=== PATIENT | male | born 1975 | race Caucasian/White ===

== ENCOUNTER 2022-08-16 01:49 | Emergency (ER) | payer OTHER ==
[~2022-08-16] VITALS: Ht 182.9 cm; Wt 97.1 kg
--- NOTE | 2022-08-16 02:15 | NUR ---
CAME W/ CC OF FEVER X5DAYS, TAKING ACETAMENOPHEN 2 TABS Q6H NO RELIEF, ON DAY 3 WITH ZPACK. +DIZZINESS AND NAUSEA, W/ RT FLANK SHARP PAIN
--- NOTE | 2022-08-16 02:21 | NUR ---
URINE COLLECTED SENT TO LAB
--- NOTE | 2022-08-16 02:32 | NUR ---
DR. BLAKE AT BEDSIDE
--- NOTE | 2022-08-16 02:45 | NUR ---
EKG DONE AT BEDSIDE
--- NOTE | 2022-08-16 02:50 | NUR ---
20G STARTED ON L AC. BLOOD COLLECTED AND SENT TO LAB
[2022-08-16] MEDS ORDERED: IBUPROFEN 400 MG TABLET ONE (02:56)
--- NOTE | 2022-08-16 02:58 | NUR ---
COVID ANTIGEN COLLECTED SENT TO LAB
[2022-08-16] MEDS ORDERED: IBUPROFEN 400 MG TABLET PO ONE (03:00)
[2022-08-16] MEDS ORDERED: IV NS 0.9% 1,000 ML BAG IV ONE (03:00)
[2022-08-16 03:12] LABS: EOSINOPHILS % (AUTO) 0.7 % (0.0-6.0); HEMATOCRIT 47 % (39-51); HEMOGLOBIN 15.2 g/dL (13.5-17.5); LYMPHOCYTES # (AUTO) 0.6 K/uL (0.8-4.8); LYMPHOCYTES % (AUTO) 15.6 % (20.0-44.0); MEAN CORPUSCULAR HGB CONC 33 g/dl (31.0-36.0); MEAN CORPUSCULAR VOLUME 89 fL (80-96); MONOCYTES # (AUTO) 0.5 K/uL (0.1-1.30); MONOCYTES % (AUTO) 12.8 % (2.0-12.0); NEUTROPHILS # (AUTO) 2.8 K/uL (1.8-8.9); NEUTROPHILS % (AUTO) 69.9 % (43.0-81.0); PLATELET COUNT (AUTO) 163 K/uL (150-450); RED BLOOD CELL COUNT(AUTO) 5.25 MIL/uL (4.5-6.0)
[2022-08-16 03:18] LABS: CALCIUM, SERUM 9.6 mg/dL (8.5-10.1); CARBON DIOXIDE 25 mmol/L (21-32); CHLORIDE 104 mmol/L (98-107); CREATININE 1.2 mg/dL (0.6-1.3); GLUCOSE 106 mg/dL (74-106); POTASSIUM 3.8 mmol/L (3.5-5.1); SODIUM SERUM 137 mmol/L (136-145); UREA NITROGEN, BLOOD 18 mg/dL (7-18)
[2022-08-16 03:23] LABS: ALANINE AMINOTRANSFERASE 61 U/L (12-78); ALBUMIN 3.8 g/dL (3.4-5.0); ALKALINE PHOSPHATASE 72 U/L (46-116); ASPARTATE AMINOTRANSFERASE 25 U/L (15-37); BILIRUBIN,DIRECT 0.1 mg/dL (0.0-0.2); BILIRUBIN,TOTAL 0.5 mg/dL (0.2-1.0); TOTAL PROTEIN, SERUM 7.3 g/dL (6.4-8.2)
[2022-08-16 04:00] LABS: BILIRUBIN,URINE NEGATIVE (NEGATIVE); COLOR,URINE YELLOW (YELLOW); LEUKOCYTE ESTERASE ,URINE NEGATIVE (NEGATIVE); NITRITE, URINE NEGATIVE (NEGATIVE); PROTEIN,URINE NEGATIVE (NEGATIVE); UGLUCOSE NEGATIVE (NEGATIVE); UROBILINOGEN,URINE 0.2 EU/dL (0.2)
--- NOTE | 2022-08-16 06:12 | NUR ---
Patient discharged to home in stable condition. Written and verbal after care instructions given. Patient verbalizes understanding of instruction.IV removed. Catheter intact and site benign. Pressure and 4x4 applied to site. No bleeding noted.
[2022-08-16 06:13] VITALS: BP 116/85
== END 2022-08-16 06:13 | disposition home or self-care (01) ==
LOC: ER 01:52
DX: R50.9 Fever, unspecified (principal); E78.5 Hyperlipidemia, unspecified; Z20.822 Contact with and (suspected) exposure to COVID-19
CPT/HCPCS: 99285; 96360; 71045; 87426; 93005; 85025; 80048; 87086; 80076; 81003; 36415; 84484; J7030; C9803

== ENCOUNTER 2022-09-27 14:33 | Emergency (ER) | payer OTHER ==
[~2022-09-27] VITALS: Ht 180.3 cm; Wt 94.3 kg
--- NOTE | 2022-09-27 15:30 | NUR ---
TO ER BED 2, NO CHANGE IN CONDITION
--- NOTE | 2022-09-27 15:33 | NUR ---
LEFT UPPER BACK PAIN S/P FALLING BACKWARD, DENIES HITTING HIS HEAD. PAIN 8/10 ON PAIN SCALE. AWAITING MD RAY.
--- NOTE | 2022-09-27 17:08 | NUR ---
Patient discharged to home in stable condition. Written and verbal after care instructions given. Patient verbalizes understanding of instruction.
[2022-09-27 17:09] VITALS: BP 130/81; TEMP 98.1; O2SAT 100
== END 2022-09-27 17:09 | disposition home or self-care (01) ==
LOC: ER 14:36
DX: M54.6 Pain in thoracic spine (principal)
CPT/HCPCS: 71100-TC

== ENCOUNTER 2022-11-25 12:29 | Emergency (ER) | payer OTHER ==
[~2022-11-25] VITALS: Ht 182.9 cm; Wt 94.8 kg
[2022-11-25 12:41] VITALS: BP 134/86; TEMP 98.4; O2SAT 100
== END 2022-11-25 13:16 | disposition home or self-care (01) ==
LOC: ER 12:32
DX: Z48.02 Encounter for removal of sutures (principal); E78.5 Hyperlipidemia, unspecified

== ENCOUNTER 2024-12-14 11:25 | Emergency (ER) | payer OTHER ==
[~2024-12-14] VITALS: Ht 182.9 cm; Wt 94.3 kg
[2024-12-14 11:33] VITALS: BP 122/73; TEMP 98.5; O2SAT 99
== END 2024-12-14 14:27 | disposition left against medical advice (07) ==
LOC: ER 11:34
DX: Z53.21 Procedure and treatment not carried out due to patient leaving prior to being seen by health care provider (principal); J02.9 Acute pharyngitis, unspecified

== ENCOUNTER 2025-02-06 21:42 | Emergency (ER) | payer OTHER ==
[~2025-02-06] VITALS: Ht 180.3 cm; Wt 92.5 kg
[2025-02-06 23:57] LABS: PLATELET COUNT (AUTO) 202 K/uL (150-450); RED BLOOD CELL COUNT(AUTO) 4.97 MIL/uL (4.5-6.0); RED CELL DISTRIBUTION WIDTH 14.0 % (11.5-15.0); WHITE BLOOD COUNT (AUTO) 6.0 K/uL (4.3-11.0)
[2025-02-07 00:07] LABS: CALCIUM, SERUM 8.7 mg/dL (8.5-10.1); CREATININE 0.9 mg/dL (0.6-1.3); SODIUM SERUM 142.0 mmol/L (136-145); UREA NITROGEN, BLOOD 15.0 mg/dL (7-18)
[2025-02-07 00:10] LABS: APPEARANCE,URINE CLEAR (CLEAR); BLOOD, URINE NEGATIVE Ery/uL (NEGATIVE); LEUKOCYTE ESTERASE ,URINE NEGATIVE (NEGATIVE); NITRITE, URINE NEGATIVE (NEGATIVE); UGLUCOSE NEGATIVE (NEGATIVE)
[2025-02-07 00:12] LABS: ASPARTATE AMINOTRANSFERASE 16.0 U/L (15-37); TOTAL PROTEIN, SERUM 6.8 g/dL (6.4-8.2)
[2025-02-07] MEDS ORDERED: IBUP-1957 PO (01:32)
[2025-02-07 01:44] VITALS: BP 122/70; TEMP 98; O2SAT 98
== END 2025-02-07 01:44 | disposition home or self-care (01) ==
LOC: ER 21:50
DX: I86.1 Scrotal varices (principal); N50.811 Right testicular pain; E78.5 Hyperlipidemia, unspecified; N43.3 Hydrocele, unspecified
CPT/HCPCS: 36415; 76870-TC; 80048-TC; 80076-TC; 83690-TC; 85025-TC

== ENCOUNTER 2025-02-27 13:24 | Emergency (ER) | payer OTHER ==
[~2025-02-27] VITALS: Ht 180.3 cm; Wt 94.3 kg
[~2025-02-27 13:24] MED LIST: IBUP-1957 PO
[2025-02-27] MEDS ORDERED: IBUP-1490 PO (13:58)
[2025-02-27] MEDS ORDERED: LIDOCAINE 1%-EPI 1:100,000 20 ML VIAL ONE ×2 (14:01→14:20)
[2025-02-27] MEDS ORDERED: BACI/NEOM/POLY B OINT PKT 1 UDPKT PACKET ONE (14:19)
[2025-02-27] MEDS: BACI/NEOM/POLY B OINT PKT 1 UDPKT PACKET TP ONE (14:20)
[2025-02-27] MEDS ORDERED: TDAP [DIPH/PERTUSSIS/TET] 0.5 ML VIAL IM ONE (14:20)
[2025-02-27] MEDS: LIDOCAINE 1%-EPI 1:100,000 20 ML VIAL TP ONE (14:21)
[2025-02-27] MEDS: TDAP [DIPH/PERTUSSIS/TET] 0.5 ML VIAL IM ONE (14:30)
[2025-02-27 14:43] VITALS: BP 134/90; TEMP 98.1; O2SAT 98
== END 2025-02-27 14:44 | disposition home or self-care (01) ==
LOC: ER 13:26
DX: S01.01XA Laceration without foreign body of scalp, initial encounter (principal); E78.5 Hyperlipidemia, unspecified; W22.03XA Walked into furniture, initial encounter; Y93.89 Activity, other specified; Y92.000 Kitchen of unspecified non-institutional (private) residence as the place of occurrence of the external cause; Y99.9 Unspecified external cause status
CPT/HCPCS: 12001; 90471; 90715; 99283; A6403; J3490